=== PATIENT | male | born 1955 | race Caucasian/White ===

== ENCOUNTER → 2017-10-22 | Outpatient (CLI) | payer OTHER ==
--- NOTE | 2017-10-23 09:59 | CT ---
EXAMINATION TYPE: CT urogram wo/w con DATE OF EXAM: 10/22/2017 COMPARISON: NONE HISTORY: Hematuria and increased frequency of urination CT DLP: 2960 mGycm, Automated Exposure Control for Dose Reduction was Utilized. CONTRAST: CT scan of the abdomen and pelvis is performed with oral and with IV Contrast, patient injected with 100 mL of Isovue 370. FINDINGS: Infrarenal abdominal aortic aneurysm measures 4.5 cm, atheromatous changes are present with in the aorta. LUNG BASES: No significant abnormality is appreciated. LIVER/GB: The liver shows low attenuation, consider hepatic steatosis, gallbladder is contracted. PANCREAS: No significant abnormality is seen. SPLEEN: No significant abnormality is seen. ADRENALS: No significant abnormality is seen. KIDNEYS: Upper pole right kidney shows an exophytic cyst measuring approximately 3.7 cm, no hydroneph rosis or calculi present bilaterally, cortical medullary differentiation is maintained. Ureters are n ormal course and caliber. BOWEL: No significant abnormality is seen. PROSTATE/SEMINAL VESICLES: Prostate is enlarged and shows some associated calcification, heterogeneou s density and there is an inferior impression noted on the bladder suspected, irregularity noted at t he bladder base thought likely to be due to the impression of the enlarged prostate. Soft tissue is p resent near the ureterovesical orifice on the left. LYMPH NODES: No greater than 1cm abdominal or pelvic lymph nodes are appreciated. OSSEOUS STRUCTURES: Degenerative disc changes are present within the visualized spine, there is a spi nal curvature, facet arthropathy. Degenerative changes are suspected. Sacroiliac joints OTHER: Umbilical hernia contains fat. IMPRESSION: Prostatic enlargement as described, inferior impression on the urinary bladder is present , possible soft tissue mass at the level of the ureterovesical orifice on the left, correlate. Infrarenal abdominal aortic aneurysm. Additional findings above.
== END ==
LOC: RADCTMAIN 15:58 → EDBD 17:00
PROVIDERS: ATTEND Urology
DX: C67.4 Malignant neoplasm of posterior wall of bladder (principal); I71.4 Abdominal aortic aneurysm, without rupture
CPT/HCPCS: 74178; 74400; Q9967

== ENCOUNTER 2020-01-13 09:31 | Day surgery (SDC) | payer OTHER ==
[2020-01-12 10:38] VITALS: BMI 29.1
--- NOTE | 2020-01-12 12:08 | P.GSHP ---
History of Present Illness H&P Date: 01/12/20 64 yo male with a history of a gd 1 Ta N0M0 tcc of the bladder 09/2017. F/u cyst o recently identified two areas of erythema worrisome for tcc He comes for cyssto with biopsies and bilateral retrograde pyelograms. - Constitutional Constitutional: Denies chills, Denies fever - EENT Eyes: denies blurred vision, denies pain Ears, nose, mouth and throat: Denies headache, Denies sore throat - Cardiovascular Cardiovascular: Denies chest pain, Denies shortness of breath - Respiratory Respiratory: Denies cough, Denies 7 - Gastrointestinal Gastrointestinal: Denies abdominal pain, Denies diarrhea, Denies nausea, Denies vomiting - Genitourinary (Female) Genitourinary: Denies dysuria, Denies hematuria - Genitourinary (Male) Genitourinary: Denies dysuria, Denies hematuria - Musculoskeletal Musculoskeletal: Denies myalgias - Integumentary Integumentary: Denies pruritus, Denies rash - Neurological Neurological: Denies numbness, Denies weakness - Psychiatric Psychiatric: Denies anxiety, Denies depression - Endocrine Endocrine: Denies fatigue, Denies weight change Past Medical History Past Medical History: Cancer, Hyperlipidemia, Hypertension, Osteoarthritis (OA) Additional Past Medical History / Comment(s): "slightly" enlarged heart, bladder cancer 2017, fatty liver History of Any Multi-Drug Resistant Organisms: None Reported Past Surgical History: Appendectomy, Tonsillectomy Additional Past Surgical History / Comment(s): cyst removed from throat, cystoscopy Past Anesthesia/Blood Transfusion Reactions: No Reported Reaction Smoking Status: Current some day smoker - Past Family History Mother Family Medical History: Deep Vein Thrombosis (DVT) Medications and Allergies Home Medications Medication Instructions Recorded Confirmed Type Aspirin 81 mg PO DAILY 01/12/20 01/12/20 History Bp Med/Diuretic(Unknown Name) 1 tab PO DAILY 01/12/20 01/12/20 History Lipitor(Unknown Dose) 1 tab PO DAILY 01/12/20 01/12/20 History Multivitamins, Thera [Multivitamin 1 tab PO DAILY 01/12/20 01/12/20 History (formulary)] Naproxen Sodium [Aleve] 220 mg PO DAILY PRN 01/12/20 01/12/20 History Potassium Chloride [Klor-Con 20 20 meq PO DAILY 01/12/20 01/12/20 History Packets] Ubidecarenone [Co Q-10] 100 mg PO DAILY 01/12/20 01/12/20 History Xanax(Unknown Dose) 1 tab PO BID PRN 01/12/20 01/12/20 History Allergies Allergy/AdvReac Type Severity Reaction Status Date / Time Penicillins Allergy Rash/Hives Verified 01/12/20 10:05 Surgical - Exam - General well developed, well nourished, no distress - Eyes PERRL - ENT no hearing loss - Neck trachea midline - Respiratory normal expansion, normal respiratory effort - Cardiovascular Rhythm: regular - Abdomen Abdomen: soft, non tender - Genitourinary normal penis with no external lesions, testicles present - Integumentary no rash, no growths - Neurologic normal coordination, normal sensation - Musculoskeletal normal posture - Psychiatric oriented to time, oriented to person, oriented to place, speech is normal, memory intact Assessment and Plan Assessment: Impression: bladder lesions, r/o recurrent cancer Plan Cysto with bladder biopsy and retrograde pyelograms.
[~2020-01-13 09:31] MED LIST: LACTATED RINGERS 1,000 ML IV SCH; LIDOCAINE 1% (10MG/ML) FOR IV START INTRADERMA PRN
[2020-01-13] MEDS ORDERED: ONDANSETRON 4 MG/2 ML VIAL ONE (10:32)
[2020-01-13] MEDS ORDERED: DEXAMETHASONE SOD PHOSPHATE 10 MG/ML 1 ML VIAL IV ONE (10:56)
[2020-01-13] MEDS ORDERED: MIDAZOLAM 2 MG/2 ML VIAL ONE (11:42)
[2020-01-13] MEDS ORDERED: SUCCINYLCHOLINE CHLORIDE 100 MG/5 ML SYR IV ONE (11:42)
[2020-01-13] MEDS ORDERED: fentaNYL (PF) 50 MCG/ML 2 ML AMP ONE (11:42)
[2020-01-13] MEDS ORDERED: PROPOFOL 10 MG/ML 20 ML VIAL IV ONE (11:42)
[2020-01-13] MEDS ORDERED: LIDOCAINE 1% INJ 10MG/ML (20 ML MDV) ONE (11:42)
[2020-01-13] MEDS ORDERED: IOPAMIDOL-370 50ML BTL MISCELLANE ONE (12:11)
--- NOTE | 2020-01-13 12:33 | P.OP ---
Date of Procedure: 01/13/20 Preoperative Diagnosis: History of bladder cancer, bladder erythema Postoperative Diagnosis: Same Procedure(s) Performed: Cystoscopy bilateral retrograde pyelograms, bladder biopsies Anesthesia: JUDAH Surgeon: Paolo Cruz Estimated Blood Loss (ml): 10 Pathology: other (Bladder biopsy) Condition: stable Disposition: PACU Indications for Procedure: The patient is 64. He has a history of superficial bladder cancer. He has bladder erythema. He comes for bladder biopsy and retrograde pyelogram Description of Procedure: Patient brought to the operating suite. He is given general anesthesia. He's placed lithotomy position with sterile prep and drape. Cystoscopy Foroblique lens and 22-[place] sheath identifies a normal. He has a trilobar obstructing prostate with an intravesical middle lobe that is quite friable. The bladder is moderately trabeculated. There is several spots of erythema in the left lateral wall. Otherwise the bladder cano unremarkable. With a cone-tip catheter bilateral retrograde pyelograms performed. 12 mL of contrast administered to the left ureter. He has a mild UPJ obstruction. There is no tumor stone or inflammation. There is no extrinsic compression Right retrograde pyelograms with 8 mL of contrast administered. There is of normal course and caliber. There is no obstruction there is no UPJ obstruction. Retrograde pyelograms do not identify any urothelial disease. He does have the mild UPJ obstruction on the left. The grafts with cup biopsy forceps the erythema or subsequently biopsy. With the Bugbee electrode the areas are then cauterized. The bladder strain the patient's awake and returned recovery room good condition Impression I doubt this patient has any bladder cancer pending the biopsies is further recommendations. 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
[2020-01-13 13:01] VITALS: TEMP 96.7
[2020-01-13 13:34] VITALS: PULSE 78; RESP 18
--- NOTE | 2020-01-13 13:39 | FL ---
Fluoroscopy History: Nadeem Retro Pyelogram 1.08min fluoro, 2 images scanned
[2020-01-13 13:42] VITALS: BP 155/74
== END 2020-01-13 14:09 | disposition home or self-care (01) ==
LOC: OR 09:31
PROVIDERS: ATTEND Urology
DX: N30.10 Interstitial cystitis (chronic) without hematuria (principal); Z85.51 Personal history of malignant neoplasm of bladder; I10 Essential (primary) hypertension; E78.5 Hyperlipidemia, unspecified; M19.90 Unspecified osteoarthritis, unspecified site; K76.0 Fatty (change of) liver, not elsewhere classified; F17.200 Nicotine dependence, unspecified, uncomplicated; Z79.82 Long term (current) use of aspirin; Z79.899 Other long term (current) drug therapy; Z88.0 Allergy status to penicillin; Z90.89 Acquired absence of other organs; Z90.49 Acquired absence of other specified parts of digestive tract; Z82.49 Family history of ischemic heart disease and other diseases of the circulatory system
CPT/HCPCS: 52204; C1758; J2250; J1100; J0690; J2405; J2001; J3010; J0330; J2704; Q9967; 88305

== ENCOUNTER → 2024-11-13 | Outpatient (CLI) | payer OTHER, MEDICARE ==
[2024-11-13 12:57] LABS: Appearance,Urine Clear (Clear); Bilirubin,Urine Negative (Negative); Blood,Urine Moderate (Negative); Color,Urine Yellow; Glucose,Urine (UA) Negative (Negative); Hyaline Casts,Urine 1 /lpf (0-2); Ketones,Urine Negative (Negative); Leukocyte Esterase,Urine Negative (Negative); Mucus,Urine Occasional /hpf; Nitrite,Urine Negative (Negative); PH, Urine 6.5 (5.0-8.0); Protein,Urine Negative (Negative); RBC,Urine 90 /hpf (0-5); Specific Gravity,Urine 1.021 (1.001-1.035); Urobilinogen,Urine <2.0 mg/dL (<2.0); WBC,Urine 4 /hpf (0-5)
[2024-11-13 15:11] LABS: Basophils # (A) 0.05 X 10*3/uL (0.00-0.10); Basophils % (A) 0.7 %; Eosinophils # (A) 0.25 X 10*3/uL (0.04-0.35); Eosinophils % (A) 3.4 %; HCT 46.8 % (39.6-50.0); HGB 15.7 g/dL (13.0-17.0); Lymphocytes # (A) 1.22 X 10*3/uL (0.90-5.00); Lymphocytes % (A) 16.8 %; MCH 32.2 pg (27.0-32.0); MCHC 33.5 g/dL (32.0-37.0); MCV 95.9 FL (80.0-97.0); Mean Platelet Volume 12.9 FL (9.5-12.2); Monocytes # (A) 0.66 X 10*3/uL (0.20-1.00); Monocytes % (A) 9.1 %; NRBC Per 100 WBC 0 X 10*3/uL (0.00-0.01); Neutrophils # (A) 5.07 X 10*3/uL (1.80-7.70); Neutrophils % (A) 69.9 %; Platelet Count 172 X 10*3/uL (140-440); RBC 4.88 X 10*6/uL (4.40-5.60); RDW 13.9 % (11.5-14.5); WBC 7.26 X 10*3/uL (4.50-10.00)
[2024-11-13 15:30] LABS: BUN/Creat Ratio 21.33 Ratio (12.00-20.00); Blood Urea Nitrogen 12.8 mg/dL (9.0-27.0); Calcium 9.1 mg/dL (8.7-10.3); Carbon Dioxide 23.2 mmol/L (21.6-31.8); Chloride 109 mmol/L (96-109); Glucose 108 mg/dL (70-110); Potassium 4.9 mmol/L (3.5-5.5); Sodium 143 mmol/L (135-145)
== END | disposition home or self-care (01) ==
LOC: LABPAT 10:46
PROVIDERS: ATTEND Urology
DX: Z01.818 Encounter for other preprocedural examination (principal)
CPT/HCPCS: 36415; 80048; 81001; 85025; 87086